=== PATIENT | female | born 1955 | race Caucasian/White ===

== ENCOUNTER → 2019-11-17 11:48 | Outpatient (BNVA) | payer MEDICARE, OTHER, SELFPAY | PROVIDERS: PCP Nurse Practitioner Family; Visit Provider Nurse Practitioner Family | DX: M25.572 Pain in left ankle and joints of left foot (principal); M79.672 Pain in left foot | CPT/HCPCS: 73610; 73630 ==

== ENCOUNTER 2021-10-17 17:14 | Emergency (ER) | payer MEDICARE, OTHER, SELFPAY ==
--- NOTE | 2021-10-17 17:26 | XRR_ITS ---
PROCEDURE INFORMATION: Exam: XR Right Hand Exam date and time: 10/17/2021 5:48 PM Age: 66 years old Clinical indication: Pain; Hand; Right; Patient HX: Distal index finger; Additional info: Trauma TECHNIQUE: Imaging protocol: Radiologic exam of the Right hand. Views: 3 or more views. COMPARISON: No relevant prior studies available. FINDINGS: Bones/joints: Second distal phalangeal tuft displaced somewhat comminuted fracture with soft tissue swelling and apparent laceration. [id number] diffuse interphalangeal joint osteoarthritis. Soft tissues: See Bones/joints finding. XR/XR hand RT min 3V* [id number] IMPRESSION: 1. Second distal phalangeal tuft displaced somewhat comminuted fracture with soft tissue swelling and apparent laceration. 2. [id number] diffuse interphalangeal joint osteoarthritis.
[2021-10-17 17:29] VITALS: BP 164/93; PULSE 79; RESP 16; TEMP 36.3; O2SAT 98; BMI 30.8
--- NOTE | 2021-10-17 17:37 | W.ED.WOUNDLC ---
HPI - Wound/Laceration General: Chief Complaint: Wound/Laceration Stated Complaint: right hand smashed by wood splitter Time Seen by Provider: 10/17/21 17:35 History of Present Illness: 66-year-old female comes in today for complaints of injury to the right index finger. Patient was working with a wood splitter and caught the tip of her finger at the edge of the wood splitter. Patient has a laceration that the bleeding is controlled with along with some deformity to the finger. Nail plate partially avulsed. Injury is on the radial side. Associated symptoms: Denies fever(s) Review of Systems General: Reports: 10 or more systems reviewed and unremarkable except in HPI and below Const: Denies: fever(s) Card: Denies: chest pain Resp: Denies: dyspnea Musc: Reports: extremity pain Skin/Breast: Reports: new lesions PFS ED PFSH: Social History Smoking and tobacco status: former smoker Alcohol intake: never Physical Exam Const: COMMON NORMALS: alert HENMT: COMMON NORMALS: atraumatic HEAD & SCALP: atraumatic Neck/C-Spine: COMMON NORMALS: full ROM Resp: COMMON NORMALS: normal respiratory effort Cardio: COMMON NORMALS: regular rate RATE: regular rate Extremity: RIGHT UPPER EXTREMITY: Yes hand & digits (Distal deformity to the right index finger, laceration radial side) Right hand and digits: Yes inspection, Yes palpation, Yes ROM exam (Decreased range of motion distal right index finger) and Yes neurovascular exam Neuro: SENSORIUM/ORIENTATION: Yes alert Skin: TRAUMA: laceration (Distal right index finger.) Procedures Laceration Laceration 1: Site: hand Side (If applicable): right Size (cm): 3 Depth: involves muscle layer (Fracture of the tuft of the finger, nail involvement) Local Anesthetic: lidocaine 1% Amount of anesthesia used (mL): 5 Pre-repair: wound explored and irrigated extensively Skin layer closed with: nylon Size (cm): 3-0 Number of sutures: 5 Technique: simple, interrupted Course Vital Signs: Vital signs: Vital Signs Temperature 97.3 F L 10/17/21 17:29 Pulse Rate 79 10/17/21 17:29 Respiratory Rate 16 10/17/21 17:29 Blood Pressure 164/93 10/17/21 17:29 Pulse Oximetry 98 10/17/21 17:29 MDM - Wound/Laceration Medical Decision Making 66-year-old female comes in today for injury to the distal right index finger. On exam patient has a partial amputation of the distal right index finger. Nail plate has been partially avulsed his damage is done on the radial side of the finger. Differential diagnosis includes fracture, laceration, nail plate avulsion. X-ray noted tuft fracture of the right index finger. Under digital block wound was reapproximated and secured with 3-0 nylon. Nail plate was placed back in position. Finger was thoroughly irrigated and closed. Reviewed exam and postprocedure care with the patient. Patient was given 1 g of Ancef IV. Patient be continued on cephalexin. Patient was given some hydrocodone for severe pain. Patient reported understanding of care plan need to follow-up with primary care in 2 days for recheck of wound. Return to ER for new concerns. Lab Data Radiology Impressions Hand X-Ray 10/17/21 17:26 IMPRESSION: 1. Second distal phalangeal tuft displaced somewhat comminuted fracture with soft tissue swelling and apparent laceration. 2. [id number] diffuse interphalangeal joint osteoarthritis. Discharge Plan Discharge Patient Disposition: Home Clinical Impression: Open finger fracture Condition: Stable Prescriptions: New hydrocodone-acetaminophen 5-325 mg tablet 1 tab PO Q8H PRN (Reason: Pain, Severe) Qty: 7 0RF No Action hydroxyzine pamoate 25 mg capsule 25 mg PO TID PRN0RF tramadol 50 mg tablet 50 mg PO Q8H PRN0RF warfarin 7.5 mg tablet 7.5 mg PO DAILY 0RF Discharge Orders: Discharge ED (Routine); Ordered 10/17/21 Ordered By: Damir Ramirez Referrals: Janneth Churchill NP [Primary Care Provider] - Discharge Diet: Usual diet Patient Instructions: Finger Fracture (ED) Activity Restrictions/Additional Instructions: Keep wounds clean and dry. Leave initial dressing on for the next 2 to 3 days keeping it clean and dry. Follow-up with primary care in 2 to 3 days for recheck of wound with new dressing and further treatment and evaluation as needed. Avoid use of finger. Take antibiotics as directed. Use acetaminophen for control of pain. Use hydrocodone for severe pain. Return to emergency department for new concerns. Coding Level of Care Code ED [employer] for [employer] Fwd Exam Detailed
[2021-10-17] MEDS: ceFAZolin 1,000 mg SDV 1000 MG IVP (17:54)
[2021-10-17] MEDS: HYDROcodone-acetaminophen 5-325 mg Tablet 1 TAB PO (17:55)
[2021-10-17] MEDS: lidocaine 2% INJ 20 mL 5 ML INJECTION (17:55)
== END 2021-10-17 19:50 | disposition home or self-care (01) ==
PROVIDERS: Emergency Provider Nurse Practitioner Family; PCP Nurse Practitioner Family
DX: S68.120A Partial traumatic metacarpophalangeal amputation of right index finger, initial encounter (principal); Z79.01 Long term (current) use of anticoagulants; W31.89XA Contact with other specified machinery, initial encounter; Z87.891 Personal history of nicotine dependence
CPT/HCPCS: 12032; 73130; 96374; 99283; J0690